=== PATIENT | female | born 1980 | race Caucasian/White ===

== ENCOUNTER 2023-12-07 17:37 | Emergency (ER) | payer OTHER, SELFPAY ==
[2023-12-07 17:43] VITALS: BP 125/84
[2023-12-07 18:01] LABS: % Basophils 0.7 % (0-2); % Eosinophils 3.9 % (0-6); % Immature Granulocytes 0.2 % (0-0.5); % Lymphocytes 30.4 % (20.5-51.1); % Monocytes 5.7 % (1.7-9.3); % Neutrophils 59.1 % (42.2-75.2); Absolute Basophils 0.1 10^3/uL (0-0.2); Absolute Eosinophils 0.3 10^3/uL (0-0.7); Absolute Lymphocytes 2.6 10^3/uL (1.2-3.4); Absolute Monocytes 0.5 10^3/uL (0.1-0.6); Hematocrit 34.4 % (37.0-47.0); Mean Corp Hgb Conc. 34.9 g/dL (33.0-37.0); Mean Corpuscular Hgb 31.1 pg (27.0-31.0); Mean Corpuscular Volume 89.1 fL (81.0-99.0); Mean Platelet Volume 9.5 fL (7.4-10.4); Nucleated Red Blood Cells % 0 %; Platelet Count 240 10^3/uL (130-400); Red Blood Cell Count 3.86 10^6/uL (4.20-5.40); Red Cell Dist. Width 11.9 % (11.5-14.5); White Blood Cell Count 8.5 10^3/uL (4.8-10.8)
[2023-12-07 18:13] LABS: HCG, Serum Qualitative Screen Negative
[2023-12-07 18:17] LABS: ALT (SGPT) 23 U/L (0-35); AST (SGOT) 31 U/L (14-36); Albumin 4.9 g/dl (3.5-5.0); Alkaline Phosphatase 45 U/L (38-126); Blood Urea Nitrogen 26 mg/dl (7-17); Calcium 9.4 mg/dl (8.4-10.2); Carbon Dioxide 26 mmol/L (22-30); Chloride 102 mmol/L (98-107); Glucose 99 mg/dl (70-99); Potassium 4.3 mmol/L (3.5-5.1); Sodium 140 mmol/L (135-145); Total Bilirubin 0.3 mg/dl (0.2-1.3); Total Protein 7.3 g/dl (6.3-8.2); eGFR > 60.00
[2023-12-07 18:28] LABS: Troponin I < 0.012 ng/ml
--- NOTE | 2023-12-07 18:49 | ED.GENMED ---
History of Present Illness
General
Chief Complaint: Heart Rate Problem
Source: patient
Exam Limitations: none
Time Seen by Provider: 12/07/23 18:33
Nursing documentation reviewed up to this point in time: agreed with
History of Present Illness
History of Present Illness:
Patient to ED with complaint of palpitations. States symptoms started thursday and continued thru today. Denies any rapid heart rate, SOB, CP/pressure, diaphoresis, nausea. No prior history of same. Brought self to ED for eval. PCP away all
week.
Past History
Past History
ED Past Medical History: None
ED Past Surgical History: (5 horizontal one vertical)
Social History
Tobacco: Former smoker
Alcohol: Former
Drug: Former user and Marijuana
Personal:
Living: with family
Employment: Employed
Family History
Family History: Other (Noncontributory)
Review of Systems
Review of Systems
Allergies reviewed?: Yes
All Other Systems: ROS reviewed and negative except as documented in HPI and ROS
Constitutional: Reports sleep disturbance (Takes a daily sleep aid)
EENT: Reports no symptoms
Respiratory: Reports no symptoms
Cardiac: Reports palpitations
ABD/GI: Reports no symptoms
: Reports no symptoms
Musculoskeletal: Reports no symptoms
Skin: Reports no symptoms
Neurological: Reports no symptoms
Psychiatric: Reports no symptoms
Phy Exam
General Physical Exam
General Presentation: well appearing and no apparent distress
General age: appears stated age
General Skin: warm and dry
General Habitus: normal
Cardiovascular Exam
Cardiovascular Exam: regular rate/rhythm and no edema
Pulmonary Exam
Pulmonary Exam: lungs clear and no respiratory distress
Musculoskeletal Exam
Musculoskeletal Exam: full ROM
Skin Exam
Skin Exam: normal color, warm/dry and no rash
Psychiatric Exam
Psychiatric Exam: normal mood/affect
Course
Orders/Labs/Results
Orders:
Orders
12/07/23 17:38
Electrocardiogram (*1) Urgent
Reason for Study: Palpitations
EKG- Treatment ONCE
12/07/23 17:46
Test Result ONCE
12/07/23 17:50
Comprehensive Metabolic Panel Urgent
HCG, Serum Qualitative Screen Urgent
TSH Reflex To Free T4 Urgent
Troponin I Urgent
12/07/23 17:51
Complete Blood Count/With Diff Urgent
Abnormal Lab Results
12/07/23 12/07/23
17:50 17:51
RBC 3.86 L 10^6/uL
(4.20-5.40)
Hct 34.4 L %
(37.0-47.0)
MCH 31.1 H pg
(27.0-31.0)
BUN 26 H mg/dl
(7-17)
12/07/23 17:51
12/07/23 17:50
Vital Signs
Initial and Last Documented VS:
Initial Vital Signs
Temp Pulse Resp BP Pulse Ox
98.0 F 70 16 125/84 98
12/07/23 17:43 12/07/23 17:43 12/07/23 17:43 12/07/23 17:43 12/07/23 17:43
Last Documented Vital Signs
Temp Pulse Resp BP Pulse Ox
98.0 F 70 16 125/84 98
12/07/23 17:43 12/07/23 17:43 12/07/23 17:43 12/07/23 17:43 12/07/23 17:43
*Critical Care Note
Total Time (30-74mins, 75-104mins- exclusive of procedures): Not Applicable
Update Note
Update Note:
Labs, EKG reviewed. No findings to explain her symptoms. Patient on continuous heart monitor. No PAC/PVC while in dept. WIll discharge home and she will follow up with PCP. Recommend holter monitor, she will discuss with PCP. Given instructions
on s/s to return to ED and she is agreeable to plan. Avoid caffeine products
ED Attending Note
-
Portions of this chart may have been created with voice recognition software.� Occasional wrong word or��sound alike� substitutions may have occurred due to the inherent limitations of voice recognition software.
Discharge Plan
Departure
Patient Disposition: Home (Routine Discharge)
Date of Disposition: 12/07/23
Time of Disposition: 18:56
Patient with high blood pressure during this ER visit?: No
Condition: Good
Covid-19: Not Applicable
Discharge Problem:
Palpitations
Instructions: Palpitations (DC)
Prescriptions:
No Action
biotin 5 MG capsule
5 mg PO DAILY
hydrocodone-acetaminophen 1 TABLET tablet
1 tab PO Q4HPRN PRN (Reason: pain) Qty: 10 0RF
ibuprofen 600 MG tablet
600 mg PO Q6 PRN (Reason: pain) Qty: 20 0RF
ibuprofen 800 MG tablet
800 mg PO TID Qty: 30 0RF
Rx Instructions:
take three times daily with meals, always take with food
levofloxacin [Levaquin] 750 MG tablet
750 mg PO DAILY Qty: 7 0RF
Activity Restrictions/Additional Instructions:
Follow up with your family doctor. Return to the emergency department immediately for any cp/pressure, SOB, dizziness, or for any further concerns.
Interventions
Interventions:
*Risk Screen - Suicide Last Done: 12/07/23 17:43
*General Assessment Last Done: 12/07/23 18:35
*Neglect/Abuse Screening Last Done: 12/07/23 17:43
ED- Fall Risk Assessment Last Done: 12/07/23 18:35
ED- Cardiac Assessment Last Done: 12/07/23 18:35
ED- Pulmonary Assessment Last Done: 12/07/23 18:35
Discharge Date and Time
Print Language: [place]
[2023-12-07 18:51] LABS: TSH Reflex To Free T4 0.74 uIU/ml (0.47-4.68)
[2023-12-07 19:26] VITALS: BP 107/76
== END 2023-12-07 19:32 | disposition home or self-care (01) ==
LOC: EMR 17:37
PROVIDERS: Emergency Medicine; EMERGENCY PHYSICIAN Emergency Medicine; FAMILY PHYSICIAN Internal Medicine
DX: R00.2 Palpitations (principal); D50.9 Iron deficiency anemia, unspecified; Z87.891 Personal history of nicotine dependence
CPT/HCPCS: 99283; 80053; 84443; 84484; 84703; 85025; 93005